=== PATIENT | female | born 1975 | race Two or more races ===

== ENCOUNTER 2016-11-07 16:24 | Emergency (ER) | payer SELFPAY ==
[~2016-11-07] VITALS: Ht 162.6 cm; Wt 72.6 kg
[2016-11-07] MEDS ORDERED: IV NORMAL SALINE 1000ML BAG 1,000 ML IV SCH (16:44)
[2016-11-07] MEDS ORDERED: ONDANSETRON PF 4 MG/2 ML VIAL. IV ONE (16:45)
[2016-11-07] MEDS ORDERED: FENTANYL PF 100 MCG/2 ML VIAL. IV PRN (16:45)
[2016-11-07 17:13] LABS: BASO % 1 % (0-3); EOS % 2 % (0-3); HEMATOCRIT 31.1 % (36.0-47.0); HEMOGLOBIN 9.9 g/dL (12.0-15.5); LYMPH # 1.2 x10^3/uL (1.0-4.8); LYMPH % 14 % (24-48); MEAN CORPUSCULAR HEMOGLOBIN 24 pg (25-35); MEAN CORPUSCULAR HGB CONC 32 g/dL (31-37); MEAN CORPUSCULAR VOLUME 75 fL (79-100); MONO % 7 % (0-9); NEUT % 77 % (31-73); PLATELET COUNT 232 x10^3/uL (140-400); RED BLOOD COUNT 4.16 x10^6/uL (3.50-5.40); RED CELL DISTRIBUTION WIDTH 16.5 % (11.5-14.5); WHITE BLOOD COUNT 8.7 x10^3/uL (4.0-11.0)
[2016-11-07 17:14] LABS: BILIRUBIN,URINE NEGATIVE (NEG); GLUCOSE,URINE NEGATIVE (NEG); NITRITE,URINE POSITIVE (NEG); PROTEIN,URINE NEGATIVE (NEG-TRACE); UROBILINOGEN,URINE 0.2 mg/dL (0.2 mg/dL)
[2016-11-07 17:20] LABS: RBC,URINE OCC /HPF (0-2); WBC,URINE >40 /HPF (0-4)
[2016-11-07 17:21] LABS: BACTERIA,URINE MANY /HPF (0-FEW); SQUAMOUS EPITHELIAL CELL,UR MOD /LPF
[2016-11-07 17:25] LABS: CALCIUM 8.8 mg/dL (8.5-10.1); CREATININE 0.6 mg/dL (0.6-1.0); GFR 111.3; POTASSIUM 3.5 mmol/L (3.5-5.1)
[2016-11-07 17:31] LABS: ALBUMIN 3.6 g/dL (3.4-5.0); ALBUMIN/GLOBULIN RATIO 0.9 (1.0-1.7); TOTAL BILIRUBIN 0.3 mg/dL (0.2-1.0); TOTAL PROTEIN 7.8 g/dL (6.4-8.2)
--- NOTE | 2016-11-07 17:37 | PHYS DOC ---
Past Medical History Past Medical History: Kidney Stone, Other Additional Past Medical Histor: UTI Past Surgical History: Cholecystectomy, Alcohol Use: None Drug Use: None Adult General Chief Complaint Chief Complaint: FLANK PAIN HPI HPI Patient is a 41 year old female who presents with complaint of fever and left flank pain for the past 3 days. Patient states that she has been having pain in her left flank over the past month but started developing fever over the past 3 days with dysuria. Patient denies chest pain. Patient has been having shortness breath with exertion. Patient states that she has history kidney stones but denies any other significant health problems. Patient has not taken any medications to help with symptoms. Patient rates her pain as 9 out of 10 and states that it is sharp. Review of Systems Review of Systems Constitutional: Fever [] Eyes: Denies change in visual acuity, redness, or eye pain [] HENT: Denies nasal congestion or sore throat [] Respiratory: Denies cough or shortness of breath [] Cardiovascular: Denies chest pain or edema [] GI: Abdominal pain, denies nausea, vomiting, bloody stools or diarrhea [] : Dysuria [] Musculoskeletal: Left flank pain [] Integument: Denies rash or skin lesions [] Neurologic: Denies headache, focal weakness or sensory changes [] Current Medications Current Medications Current Medications Medications (Trade) Dose Ordered Sig/Alea Start Time Stop Time Status Last Admin Dose Admin Ceftriaxone Sodium (Rocephin 1gm Ivpb For Omni) 50 ml @ 100 mls/hr 1X ONCE 11/07/16 18:00 11/07/16 18:29 DC 11/07/16 17:55 100 MLS/HR Fentanyl Citrate 50 mcg 50 mcg PRN Q15MIN PRN 11/07/16 16:45 11/08/16 16:44 11/07/16 17:49 50 MCG Ondansetron HCl 4 mg 4 mg 1X ONCE 11/07/16 16:45 11/07/16 17:09 DC 11/07/16 17:50 4 MG Sodium Chloride (Iv Sodium Chloride 0.9% 1000ml Bag) 1,000 ml @ 1,000 mls/hr Q1H 11/07/16 16:44 11/07/16 17:43 DC 11/07/16 17:50 1,000 MLS/HR Allergies Allergies Allergies Coded Allergies Type Severity Reaction Last Updated Verified No Known Drug Allergies 11/07/16 No Physical Exam Physical Exam Constitutional: Alert, febrile, appears ill. [] HENT: Normocephalic, atraumatic, bilateral external ears normal, oropharynx moist, no oral exudates, nose normal. [] Eyes: PERRLA, EOMI, conjunctiva normal, no discharge. [] Neck: Normal range of motion, no tenderness, supple, no stridor. [] Cardiovascular:Heart rate regular rhythm, no murmur [] Lungs & Thorax: Bilateral breath sounds clear to auscultation [] Abdomen: Bowel sounds normal, soft, left lower quadrant tenderness palpation, no masses, no pulsatile masses. [] Skin: Warm, dry, no erythema, no rash. [] Back: No tenderness, left CVA tenderness. [] Extremities: No tenderness, no cyanosis, no clubbing, ROM intact, no edema. [] Neurologic: Alert and oriented X 3, normal motor function, normal sensory function, no focal deficits noted. [] Current Patient Data Vital Signs Vital Signs Date Time Temp Pulse Resp B/P Pulse Ox O2 Delivery O2 Flow Rate FiO2 11/07/16 17:49 18 97 Room Air 11/07/16 16:27 100.1 92 112/49 100.1 Lab Values Laboratory Tests Test 11/07/16 15:57 11/07/16 16:35 11/07/16 16:50 11/07/16 17:35 POC Urine HCG, Qualitative Hcg negative (Negative) Urine Collection Type Unknown Urine Color Yellow Urine Clarity Cloudy Urine pH 6.0 Urine Specific [place] 1.010 Urine Protein Negativemg/dL (NEG-TRACE) Urine Glucose (UA) Negativemg/dL (NEG) Urine Ketones (Stick) Negativemg/dL (NEG) Urine Blood Moderate (NEG) Urine Nitrite Positive (NEG) Urine Bilirubin Negative (NEG) Urine Urobilinogen Dipstick 0.2mg/dL (0.2 mg/dL) Urine Leukocyte Esterase Large (NEG) Urine RBC Occ/HPF (0-2) Urine WBC >40/HPF (0-4) Urine Squamous Epithelial Cells Mod/LPF Urine Bacteria Many/HPF (0-FEW) Urine Mucus Slight/LPF White Blood Count 8.7x10^3/uL (4.0-11.0) Red Blood Count 4.16x10^6/uL (3.50-5.40) Hemoglobin 9.9g/dL (12.0-15.5) L Hematocrit 31.1% (36.0-47.0) L Mean Corpuscular Volume 75fL (79-100) L Mean Corpuscular Hemoglobin 24pg (25-35) L Mean Corpuscular Hemoglobin Concent 32g/dL (31-37) Red Cell Distribution Width 16.5% (11.5-14.5) H Platelet Count 232x10^3/uL (140-400) Neutrophils (%) (Auto) 77% (31-73) H Lymphocytes (%) (Auto) 14% (24-48) L Monocytes (%) (Auto) 7% (0-9) Eosinophils (%) (Auto) 2% (0-3) Basophils (%) (Auto) 1% (0-3) Neutrophils # (Auto) 6.7x10^3uL (1.8-7.7) Lymphocytes # (Auto) 1.2x10^3/uL (1.0-4.8) Monocytes # (Auto) 0.6x10^3/uL (0.0-1.1) Eosinophils # (Auto) 0.1x10^3/uL (0.0-0.7) Basophils # (Auto) 0.0x10^3/uL (0.0-0.2) Sodium Level 140mmol/L (136-145) Potassium Level 3.5mmol/L (3.5-5.1) Chloride Level 102mmol/L (98-107) Carbon Dioxide Level 29mmol/L (21-32) Anion Gap 9 (6-14) Blood Urea Nitrogen 9mg/dL (7-20) Creatinine 0.6mg/dL (0.6-1.0) Estimated GFR (Cockcroft-Gault) 111.3 BUN/Creatinine Ratio 15 (6-20) Glucose Level 95mg/dL (70-99) Calcium Level 8.8mg/dL (8.5-10.1) Total Bilirubin 0.3mg/dL (0.2-1.0) Aspartate Amino Transferase (AST) 13U/L (15-37) L Alanine Aminotransferase (ALT) 15U/L (14-59) Alkaline Phosphatase 76U/L (46-116) Total Protein 7.8g/dL (6.4-8.2) Albumin 3.6g/dL (3.4-5.0) Albumin/Globulin Ratio 0.9 (1.0-1.7) L Lipase 154U/L (73-393) Lactic Acid Level 0.5mmol/L (0.4-2.0) Laboratory Tests 11/07/16 16:50 Laboratory Tests 11/07/16 16:50 EKG EKG Not performed [] Radiology/Procedures Radiology/Procedures [facility] [address] [place] [address] IMAGING REPORT Signed PATIENT: SIRIA MEYERS ACCOUNT: [id number] : 1975 LOCATION: ER AGE: 41 SEX: F EXAM STATUS: REG ER ORD. PHYSICIAN: FROY WARD MD REASON: left-sided flank pain, rule out ureteral stone PROCEDURE: ABDOMEN PELVIS WO CONTRAST PROCEDURE CT abdomen and pelvis without contrast. HISTORY Left flank pain. TECHNIQUE Axial images and coronal and sagittal re-formatted images are provided. One or more of the following individualized dose reduction techniques were utilized for this exam: 1. Automated exposure control. 2. Adjustment of the mA and/or kV according to patient's size. 3. Use of iterative reconstruction technique. COMPARISON None. FINDINGS There is atelectasis in the lung bases. There are calcified granulomas. There is no pleural effusion. The heart is not enlarged. There is elevation of the right hemidiaphragm. Solid organ evaluation is limited without contrast. Liver is unremarkable. Gallbladder is absent. Spleen is not enlarged. Pancreas and adrenals are unremarkable. There is no obstructing or nonobstructing renal calculus, neither ureter able to be followed in its entirety, neither ureter dilated. Aorta is normal caliber. Lack of IV or oral contrast limits evaluation of bowel. There is no small bowel obstruction or mural thickening. Normal appendix is noted. Colon is grossly unremarkable. Small fat containing umbilical hernia is noted. There is no adnexal mass. There is no free pelvic fluid. There are calcified phleboliths. These do not appear along the expected course of either ureter. Again, neither ureter can be followed. Bladder is unremarkable. IMPRESSION No acute abdominal findings. Electronically signed by: Blaze Timmons MD (Nov 07, 2016 18:42:45) DICTATED and SIGNED BY: BLAZE TIMMONS MD DATE: 11/07/161841 CC: FROY WARD MD; NO PCP ~ [] Course & Med Decision Making Course & Med Decision Making Pertinent Labs and Imaging studies reviewed. (See chart for details) Patient was given 1 g of IV Rocephin, 1 L of IV fluids, fentanyl, and Zofran in the emergency department. On reevaluation, patient states her symptoms have improved at this time. Patient will continue on seven-day course of Cipro for treatment of acute pyelonephritis. Advise follow-up in 2 days a primary doctor and return to emergency department for any worsening symptoms. Patient voiced understanding and in agreement with treatment plan. Dragon Disclaimer Dragon Disclaimer This electronic medical record was generated, in whole or in part, using a voice recognition dictation system. Departure Departure Impression: Primary Impression: Acute pyelonephritis Disposition: 01 HOME, SELF-CARE Condition: IMPROVED Patient Instructions: Pyelonephritis, Adult Additional Instructions: Follow-up with your primary doctor in 2 days for reevaluation. Return to the emergency department for any worsening symptoms. Scripts Ciprofloxacin Hcl (Cipro)500 Mg Tablet1 Tab PO BID #14 TAB Prov:FROY WARD MD 11/07/16 Ondansetron (Zofran Odt)4 Mg Tab.rapdis1 Tab SL Q8HRS PRN NAUSEA/VOMITING #15 TAB Prov:FROY WARD MD 11/07/16 FROY WARD MD Nov 07, 2016 17:37
[2016-11-07] MEDS ORDERED: CEFTRIAXONE 1GM IVPB FOR OMNI 50 ML IV ONE (18:00)
--- NOTE | 2016-11-07 18:43 | RAD ---
PROCEDURE CT abdomen and pelvis without contrast. HISTORY Left flank pain. TECHNIQUE Axial images and coronal and sagittal re-formatted images are provided. One or more of the following individualized dose reduction techniques were utilized for this exam: 1. Automated exposure control. 2. Adjustment of the mA and/or kV according to patient's size. 3. Use of iterative reconstruction technique. COMPARISON None. FINDINGS There is atelectasis in the lung bases. There are calcified granulomas. There is no pleural effusion. The heart is not enlarged. There is elevation of the right hemidiaphragm. Solid organ evaluation is limited without contrast. Liver is unremarkable. Gallbladder is absent. Spleen is not enlarged. Pancreas and adrenals are unremarkable. There is no obstructing or nonobstructing renal calculus, neither ureter able to be followed in its entirety, neither ureter dilated. Aorta is normal caliber. Lack of IV or oral contrast limits evaluation of bowel. There is no small bowel obstruction or mural thickening. Normal appendix is noted. Colon is grossly unremarkable. Small fat containing umbilical hernia is noted. There is no adnexal mass. There is no free pelvic fluid. There are calcified phleboliths. These do not appear along the expected course of either ureter. Again, neither ureter can be followed. Bladder is unremarkable. IMPRESSION No acute abdominal findings. Electronically signed by: Blaze Timmons MD (Nov 07, 2016 18:42:45)
[2016-11-07 18:45] VITALS: BP 98/53
[2016-11-07] MEDS ORDERED: ONDA4TAB10 SL (18:48)
[2016-11-07] MEDS ORDERED: CIPR500T94 PO (18:48)
--- NOTE | 2016-11-08 06:24 | EKG ---
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
== END 2016-11-07 19:05 | disposition home or self-care (01) ==
LOC: ER 16:24
DX: N10 Acute pyelonephritis (principal); Z87.442 Personal history of urinary calculi; Z87.440 Personal history of urinary (tract) infections; Z90.49 Acquired absence of other specified parts of digestive tract
CPT/HCPCS: 36415; 74176; 80053; 81001; 81025; 83605; 83690; 85027; 87040; 87086; 93005; 96365; 96375; 99285; J0690; J2405; J3010; J7030

== ENCOUNTER 2020-04-12 05:45 | Emergency (ER) | payer SELFPAY ==
[~2020-04-12] VITALS: Ht 160 cm; Wt 65.9 kg
[~2020-04-12 05:45] MED LIST: CIPR500T94 PO; ONDA4TAB10 SL
[2020-04-12] MEDS ORDERED: ONDANSETRON PF 4 MG/2 ML VIAL. IVP ONE (06:30)
[2020-04-12] MEDS ORDERED: KETOROLAC 15 MG/ML VIAL. IVP ONE (06:45)
[2020-04-12] MEDS ORDERED: FAMOTIDINE 20 MG/2 ML VIAL IVP ONE (06:45)
[2020-04-12] MEDS ORDERED: IV NORMAL SALINE 1000ML BAG 1,000 ML IV ONE (06:45)
[2020-04-12 07:06] LABS: BASO % 1 % (0-3); EOS % 0 % (0-3); HEMATOCRIT 34.9 % (36.0-47.0); HEMOGLOBIN 11.2 g/dL (12.0-15.5); LYMPH # 0.8 x10^3/uL (1.0-4.8); LYMPH % 13 % (24-48); MEAN CORPUSCULAR HEMOGLOBIN 25 pg (25-35); MEAN CORPUSCULAR HGB CONC 32 g/dL (31-37); MEAN CORPUSCULAR VOLUME 77 fL (79-100); MONO # 0.4 x10^3/uL (0.0-1.1); MONO % 7 % (0-9); NEUT # 4.8 x10^3/uL (1.8-7.7); NEUT % 80 % (31-73); PLATELET COUNT 236 x10^3/uL (140-400); RED BLOOD COUNT 4.55 x10^6/uL (3.50-5.40); RED CELL DISTRIBUTION WIDTH 23.2 % (11.5-14.5)
[2020-04-12 07:14] LABS: CALCIUM 8.7 mg/dL (8.5-10.1); CREATININE 0.6 mg/dL (0.6-1.0); GFR 109.6; POTASSIUM 3.4 mmol/L (3.5-5.1)
[2020-04-12 07:19] LABS: BILIRUBIN,URINE NEGATIVE (NEG); CLARITY,URINE CLEAR; COLOR,URINE YELLOW; NITRITE,URINE POSITIVE (NEG); PROTEIN,URINE NEGATIVE (NEG-TRACE); RBC,URINE 0 /HPF (0-2); UROBILINOGEN,URINE 0.2 mg/dL (0.2 mg/dL)
[2020-04-12 07:20] LABS: BACTERIA,URINE MANY /HPF (0-FEW); SQUAMOUS EPITHELIAL CELL,UR MANY /LPF; WBC,URINE 20-40 /HPF (0-4)
[2020-04-12 07:21] LABS: ALBUMIN 3.5 g/dL (3.4-5.0); ALBUMIN/GLOBULIN RATIO 0.8 (1.0-1.7); TOTAL BILIRUBIN 0.4 mg/dL (0.2-1.0); TOTAL PROTEIN 7.7 g/dL (6.4-8.2)
--- NOTE | 2020-04-12 07:25 | EKG ---
[facility] [address] [place] [address] Test Date: 2020-04-12 Test Time: 06:53:45 Pat Name: SIRIA MEYERS Department: Room: Gender: F [employer]: : 1975 Requested By: LIDYA CARLSON Order Number: [id number] Reading MD: Measurements Intervals [place] Rate: 79 P: 37 WI: 138 QRS: 41 QRSD: 86 T: 19 QT: 366 QTc: 421 Interpretive Statements SINUS RHYTHM VENTRICULAR PREMATURE COMPLEX(ES) ABNORMAL ECG RI6.02 No previous ECG available for comparison
[2020-04-12 07:28] LABS: CREATINE KINASE 115 U/L (26-192)
[2020-04-12] MEDS ORDERED: IOHEXOL 300 MG/ML 100ML VIAL. IV ONE (07:30)
[2020-04-12] MEDS ORDERED: CONTRAST GIVEN. MC PRN (07:30)
--- NOTE | 2020-04-12 07:31 | PHYS DOC ---
Past Medical History Past Medical History: Kidney Stone, Other Additional Past Medical Histor: UTI Past Surgical History: Cholecystectomy, Additional Past Surgical Histo: UMBILICAL CYST REMOVED Smoking Status: Former Smoker Alcohol Use: Rarely Drug Use: Marijuana General Adult EDM: Chief Complaint: ABDOMINAL PAIN HPI: HPI: Patient is a 44 year old Female presents with 2-day history of colicky left upper quadrant and epigastric pain. Patient reports sudden onset left upper quadrant pain developing Friday that is colicky in nature approximately 6 out of 10 on the pain scale. She describes her pain is constant unrelenting. Her pain is unassociated with eating or drinking and has no alleviating factors. With palpation she reports radiation of her pain from her left upper quadrant to her right lower quadrant. Patient denies ever having pain like this before. She reports mild nausea. Her last bowel movement was this morning approximately 3 hours ago. Patient denies diarrhea. last menstrual period March 27, 2020. Denies symptoms of GERD. Review of Systems: Review of Systems: Constitutional: Denies fever or chills Eyes: Denies redness or eye pain HENT: Denies nasal congestion or sore throat Respiratory: Denies cough or shortness of breath Cardiovascular: Denies chest pain or palpitations GI: Reports abdominal pain and nausea without vomiting. : Denies dysuria or hematuria. Musculoskeletal: Denies back pain or joint pain Integument: Denies rash or skin lesions Neurologic: Denies headache, focal weakness or sensory changes Complete systems were reviewed and found to be within normal limits, except as documented in this note. Family History: Family History: Father: History of cardiac pacemaker and ablation. Mother: No relevant past medical history. Current Medications: Current Medications Medications (Trade) Dose Ordered Sig/Alea Start Time Stop Time Status Last Admin Dose Admin Famotidine (Pepcid Vial) 20 mg 1X ONCE 04/12/20 06:45 04/12/20 06:46 DC Ketorolac Tromethamine (Toradol 15mg Vial) 15 mg 1X ONCE 04/12/20 06:45 04/12/20 06:46 DC Ondansetron HCl (Zofran) 4 mg 1X ONCE 04/12/20 06:30 04/12/20 06:42 DC Sodium Chloride 1,000 ml @ 1,000 mls/hr 1X ONCE 04/12/20 06:45 04/12/20 07:44 Allergies: Allergies: Allergies Coded Allergies Type Severity Reaction Last Updated Verified No Known Drug Allergies 11/07/16 No NKDA Physical Exam: PE: Constitutional: Well developed, well nourished, no acute distress, non-toxic appearance. HENT: Normocephalic, atraumatic. Cranial nerves II through XII grossly intact bilaterally. Eyes: Conjunctiva normal, no discharge. No scleral icterus. Neck: Normal range of motion, no tenderness, supple. No carotid bruit. Lungs & Thorax: Bilateral breath sounds clear to auscultation, no wheezing. Patient does not appear to be in any respiratory distress. Heart: Regular rate and rhythm no murmurs, S2 S1 normal, S3-S4 absent. Abdomen: Soft, nonrigid. Tender to palpation in the left upper quadrant and epigastrium. No rebound tenderness. Negative heel strike. Bowel sounds present all 4 quadrants. Negative Audi's and Leigh Marshall sign. Well-healed laparoscopic incisions for cholecystectomy. Skin: Warm, dry, no erythema, no rash Back: No tenderness, no CVA tenderness. Extremities: No tenderness, ROM intact, no edema. 2+/4 pulses in all 4 extremities. Neurologic: Alert and oriented X 3, normal motor function, normal sensory function, no focal deficits noted Psychologic: Affect normal, judgment normal. Current Patient Data: Labs: Laboratory Tests Test 04/12/20 06:33 POC Urine HCG, Qualitative Hcg negative (Negative) Vital Signs: Vital Signs Date Time Temp Pulse Resp B/P (MAP) Pulse Ox O2 Delivery O2 Flow Rate FiO2 04/12/20 06:01 98.3 84 20 120/56 (77) 99 Room Air 98.3 EKG: EKG: HR: 79 BPM NE:104ms QS: 86ms QT 366ms QTc: 421 Normal sinus rhythm. Radiology/Procedures: Radiology/Procedures: PROCEDURE: CT ABD PELV W/ IV CONTRST ONLY CT abdomen and pelvis with contrast PQRS statement: CT scans at this facility use dose reduction including either automated exposure control, iterative reconstructions, and /or weight based radiation dosing via mA and kV modification when appropriate to reduce radiation dose to as low as reasonably achievable. Contrast: 75 mL Omnipaque 300 intravenous contrast HISTORY: Left upper quadrant abdominal pain. Epigastric pain. COMPARISON: CT abdomen and pelvis November 07, 2016. Abdomen findings: Chronic left L5 spondylolysis. Lung bases are unremarkable. Mild prominence of the bile ducts likely related to cholecystectomy. Mild scarring and atrophy right renal lower pole stable. Left kidney, adrenal glands, pancreas, spleen and liver are unremarkable. There is abnormal hypervascular thickened wall enhancement of the distal ileum leading up to the ileocecal junction as well as similar inflammatory wall thickening of the cecum and ascending colon to the hepatic flexure typical of enterocolitis. No bowel obstruction evident. The appendix is negative. No abdominal fluid or adenopathy. 2 cm fatty umbilical abdominal wall hernia. Pelvis findings: 2 cm ring-enhancing lesion of the right ovary. Left ovary, bladder, rectum and uterus are unremarkable. The lower uterine segment is somewhat displaced to the left of midline although similar the prior exam and there is increased soft tissue fullness near the region of the lower uterine segment and cervix although also similar the prior exam. Small volume of dependent pelvic free fluid. No adenopathy. Bones are unremarkable. Congenital dysgenesis of the lower sacrum. IMPRESSION: 1. Enterocolitis with inflammatory wall thickening of the distal ileum and right-sided colon, could represent infectious enterocolitis or Crohn's disease. No bowel obstruction. 2. Appendix is negative. 3. 2 cm ring-enhancing lesion of the right ovary may be a dominant follicle or cyst. This could be further assessed with pelvic sonography. 4. Mild soft tissue fullness at the lower uterine segment and cervix grossly similar to prior CT imaging in 2017 of uncertain significance. Correlation with pelvic examination and cervical Pap smear if the patient has not had this recently performed may be of benefit. Electronically signed by: Rohith Barbour MD (04/12/2020 7:59 AM) [id number] Course & Med Decision Making: Course & Med Decision Making Pertinent Labs and Imaging studies reviewed. (See chart for details) patient presents with LUQ abdominal pain. Tenderness to LLQ on palpation. Labs obtained and posted to chart. CT with contrast ordered to evaluate for acute pathologies, and rule out small bowel obstruction. Lipase ordered to rule out pancreatitis. EKG ordered to rule out cardiac abnormalities, which showed sinus rhythm with no acute ST elevation, giving a low likelihood of cardiac pathologies. LFT and lipase WNL. Troponin WNL. EKG stable. UA with findings concering for acute UTI. Empiric antibiotics given. CT abd/pelvis with findings consistent for enterocolitis. Will placed on Cipro and flagyl with consult to GI. Both blue phone and local river guide utilized for patient interview. Patient stable for discharge with outpatient follow-up with PCP/GI. GI referral provided. Discussed findings and plan with patient, who acknowledges understanding and agreement. Fauzia Disclaimer: Fauzia Disclaimer: This electronic medical record was generated, in whole or in part, using a voice recognition dictation system. Departure Departure Impression: Primary Impression: Enterocolitis Additional Impression: UTI (urinary tract infection) Qualified Codes: N30.00 - Acute cystitis without hematuria Disposition: HOME, SELF-CARE Condition: STABLE Referrals: NO PCP (PCP) TAWANDA HUMPHRIES MD Patient Instructions: Colitis, Urinary Tract Infection, Qdud-lh-Saut Scripts Hydrocodone/Apap 5-325 (NORCO 5-325 TABLET) 1 Each Tablet 0.5-1 TAB PO PRN Q6HRS PRN for PAIN, #10 TAB 0 Refills Prov: LIDYA CARLSON DO 04/12/20 Ondansetron (ONDANSETRON ODT) 4 Mg Tab.rapdis 1 TAB PO PRN Q6-8HRS PRN for NAUSEA, #16 TAB Prov: LIDYA CARLSON DO 04/12/20 Metronidazole (FLAGYL) 500 Mg Tablet 500 MG PO TID for 7 Days, #21 TAB Prov: LIDYA CARLSON DO 04/12/20 Ciprofloxacin Hcl (CIPRO) 500 Mg Tablet 1 TAB PO BID for 7 Days, #14 TAB 0 Refills Prov: LIDYA CARLSON DO 04/12/20 Justicifation of Admission Dx: Justifications for Admission: Justification of Admission Dx: N/A LIDYA CARLSON DO Apr 12, 2020 07:31
[2020-04-12] MEDS ORDERED: cefTRIAXone IV Push 1 GM VIAL. IVP ONE (07:45)
--- NOTE | 2020-04-12 08:02 | RAD ---
CT abdomen and pelvis with contrast PQRS statement: CT scans at this facility use dose reduction including either automated exposure control, iterative reconstructions, and /or weight based radiation dosing via mA and kV modification when appropriate to reduce radiation dose to as low as reasonably achievable. Contrast: 75 mL Omnipaque 300 intravenous contrast HISTORY: Left upper quadrant abdominal pain. Epigastric pain. COMPARISON: CT abdomen and pelvis November 07, 2016. Abdomen findings: Chronic left L5 spondylolysis. Lung bases are unremarkable. Mild prominence of the bile ducts likely related to cholecystectomy. Mild scarring and atrophy right renal lower pole stable. Left kidney, adrenal glands, pancreas, spleen and liver are unremarkable. There is abnormal hypervascular thickened wall enhancement of the distal ileum leading up to the ileocecal junction as well as similar inflammatory wall thickening of the cecum and ascending colon to the hepatic flexure typical of enterocolitis. No bowel obstruction evident. The appendix is negative. No abdominal fluid or adenopathy. 2 cm fatty umbilical abdominal wall hernia. Pelvis findings: 2 cm ring-enhancing lesion of the right ovary. Left ovary, bladder, rectum and uterus are unremarkable. The lower uterine segment is somewhat displaced to the left of midline although similar the prior exam and there is increased soft tissue fullness near the region of the lower uterine segment and cervix although also similar the prior exam. Small volume of dependent pelvic free fluid. No adenopathy. Bones are unremarkable. Congenital dysgenesis of the lower sacrum. IMPRESSION: 1. Enterocolitis with inflammatory wall thickening of the distal ileum and right-sided colon, could represent infectious enterocolitis or Crohn's disease. No bowel obstruction. 2. Appendix is negative. 3. 2 cm ring-enhancing lesion of the right ovary may be a dominant follicle or cyst. This could be further assessed with pelvic sonography. 4. Mild soft tissue fullness at the lower uterine segment and cervix grossly similar to prior CT imaging in 2017 of uncertain significance. Correlation with pelvic examination and cervical Pap smear if the patient has not had this recently performed may be of benefit. Electronically signed by: Rohith Barbour MD (04/12/2020 7:59 AM) [id number]
[2020-04-12 08:13] LABS: ANISOCYTOSIS PRESENT; PLT ESTIMATE ADEQUATE (ADEQUATE)
[2020-04-12] MEDS ORDERED: HYDR-3164 PO (08:22)
[2020-04-12] MEDS ORDERED: ONDA4TAB12 PO (08:22)
[2020-04-12] MEDS ORDERED: CIPR500T94 PO (08:22)
[2020-04-12] MEDS ORDERED: METR500T PO (08:22)
[2020-04-12 08:30] VITALS: BP 111/65
[2020-04-12] MEDS ORDERED: metroNIDAZOLE 500 MG TABLET PO ONE (08:30)
== END 2020-04-12 08:58 | disposition home or self-care (01) ==
LOC: ER 05:45
DX: K52.9 Noninfective gastroenteritis and colitis, unspecified (principal); N30.00 Acute cystitis without hematuria; Z87.891 Personal history of nicotine dependence; Z90.49 Acquired absence of other specified parts of digestive tract; Z87.442 Personal history of urinary calculi
CPT/HCPCS: 36415; 74177; 80053; 81001; 81025; 82553; 83690; 83735; 84484; 85025; 87086; 93005; 96361; 96374; 96375; 99285; J0696; J1885; J2405; J3490; J7030; Q9967